=== PATIENT | male | born 1985 | race Caucasian/White ===

== ENCOUNTER 2022-04-02 10:29 | Emergency (ER) | payer OTHER ==
[2022-04-02 10:37] VITALS: BP 113/75; PULSE 78; TEMP 98; BMI 24.3
[2022-04-02] MEDS ORDERED: ACETAMINOPHEN 325 MG TABLET (FP) PO ONE (11:57)
[2022-04-02] MEDS ORDERED: LIDOCAINE 5% TOPICAL PATCH TP ONE (11:58)
[2022-04-02] MEDS ORDERED: LIDOCAINE 5% TOPICAL PATCH ONE (12:03)
[2022-04-02 14:03] LABS: URINE APPEARANCE CLEAR; URINE BILIRUBIN NEGATIVE (NEGATIVE); URINE COLOR DK YELLOW; URINE GLUCOSE (UA) NEGATIVE (NEGATIVE); URINE KETONE 1+ (NEGATIVE); URINE LEUK ESTERASE NEGATIVE (NEGATIVE); URINE NITRITE NEGATIVE (NEGATIVE); URINE PROTEIN NEGATIVE (NEGATIVE); URINE UROBILINOGEN 0.2 mg/dL (0.2-1.0)
[2022-04-02] MEDS ORDERED: LIDOCAINE PATCH REMOVAL MC SCH (22:00)
== END 2022-04-02 14:21 | disposition home or self-care (01) ==
LOC: JER 10:29
DX: R10.31 Right lower quadrant pain (principal)
CPT/HCPCS: 81003; 87086; 99284-25